=== PATIENT | male | born 1950 | race Caucasian/White ===

== ENCOUNTER 2017-06-06 07:58 | Inpatient (IN) | payer MEDICARE, OTHER ==
[~2017-06-06] VITALS: Ht 170.2 cm; Wt 83.7 kg
[2017-06-06] MEDS ORDERED: MORPHINE SULFATE 4 MG/ML DISP.SYRIN. IV/SQ PRN (08:30)
[2017-06-06] MEDS ORDERED: NITROGLYCERIN SUBLINGUAL 0.4 MG BOTTLE OF 25. SL PRN ×2 (08:30→10:45)
--- NOTE | 2017-06-06 08:33 | EKG ---
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
[2017-06-06 08:40] LABS: BASO % 1 % (0-3); EOS # 0.1 x10^3/uL (0.0-0.7); EOS % 1 % (0-3); HEMATOCRIT 42.9 % (39.0-53.0); LYMPH % 26 % (24-48); MEAN CORPUSCULAR HEMOGLOBIN 33 pg (25-35); MEAN CORPUSCULAR HGB CONC 35 g/dL (31-37); MEAN CORPUSCULAR VOLUME 94 fL (79-100); MONO # 0.5 x10^3/uL (0.0-1.1); MONO % 6 % (0-9); NEUT # 5.2 x10^3uL (1.8-7.7); NEUT % 67 % (31-73); PLATELET COUNT 136 x10^3/uL (140-400); RED BLOOD COUNT 4.57 x10^6/uL (4.30-5.70); RED CELL DISTRIBUTION WIDTH 13.2 % (11.5-14.5); WHITE BLOOD COUNT 7.8 x10^3/uL (4.0-11.0)
--- NOTE | 2017-06-06 08:51 | RAD ---
Portable chest, 06/06/2017: History: Chest pain The heart size and pulmonary vascularity are normal. No pulmonary infiltrates are seen. There is no evidence of pleural fluid. There is mild spurring in the spine. IMPRESSION: No acute cardiopulmonary abnormality is detected.
--- NOTE | 2017-06-06 08:58 | PHYS DOC ---
Adult General Chief Complaint Chief Complaint: CHEST WALL PAIN HPI HPI Patient is a 66 year old male who presents with chest pain. The patient reports onset of pain last evening while at rest, woke him up at night & intensified this morning. Pain is pressure like, substernal, radiates to back between shoulder blades. Reports shortness of breath & nausea, denies diaphoresis. He denies fevers/chills, cough, lower extremity pain/swelling. He denies previous history of similar symptoms. 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 History of CAD in his grandfather. Review of Systems Review of Systems Constitutional: Denies fever or chills Eyes: Denies change in visual acuity HENT: Denies nasal congestion or sore throat Respiratory: Denies cough, reports shortness of breath Cardiovascular: Reports chest pain, denies edema GI: Reports nausea. Denies abdominal pain, vomiting, bloody stools or diarrhea Musculoskeletal: Denies back pain or joint pain Integument: Denies rash or skin lesions Neurologic: Denies headache, focal weakness or sensory changes Current Medications Current Medications Current Medications Medications (Trade) Dose Ordered Sig/John Start Time Stop Time Status Last Admin Dose Admin Aspirin (Children'S Aspirin) 324 mg 1X ONCE 06/06/17 08:30 06/06/17 08:31 UNV Morphine Sulfate (Morphine 4mg Syringe) 4 mg PRN Q15MIN PRN 06/06/17 08:30 06/07/17 08:29 UNV Nitroglycerin (Nitrostat) 0.4 mg PRN Q5MIN PRN 06/06/17 08:30 UNV Physical Exam Physical Exam Constitutional: Well developed, well nourished, no acute distress, non-toxic appearance. HENT: Normocephalic, atraumatic, bilateral external ears normal, oropharynx moist, nose normal. Eyes: conjunctiva normal, no discharge. Neck: supple, no stridor. Cardiovascular: RRR, no murmurs, no edema. Lungs & Thorax: LCTAB, no wheezing, no respiratory distress. no reproducible tenderness with palpation over anterior chest wall. Abdomen: soft, nontender, nondistended. Skin: Warm, dry, no erythema, no rash. Back: No tenderness. Extremities: No tenderness, no edema. no calf tenderness or swelling. Neurologic: Alert and oriented X 3, no focal deficits noted. Psychologic: Affect normal, judgement normal, mood normal. Current Patient Data Lab Results Laboratory Tests Test 06/06/17 08:20 White Blood Count 7.8 x10^3/uL (4.0-11.0) Red Blood Count 4.57 x10^6/uL (4.30-5.70) Hemoglobin 15.0 g/dL (13.0-17.5) Hematocrit 42.9 % (39.0-53.0) Mean Corpuscular Volume 94 fL (79-100) Mean Corpuscular Hemoglobin 33 pg (25-35) Mean Corpuscular Hemoglobin Concent 35 g/dL (31-37) Red Cell Distribution Width 13.2 % (11.5-14.5) Platelet Count 136 x10^3/uL (140-400) L Neutrophils (%) (Auto) 67 % (31-73) Lymphocytes (%) (Auto) 26 % (24-48) Monocytes (%) (Auto) 6 % (0-9) Eosinophils (%) (Auto) 1 % (0-3) Basophils (%) (Auto) 1 % (0-3) Neutrophils # (Auto) 5.2 x10^3uL (1.8-7.7) Lymphocytes # (Auto) 2.0 x10^3/uL (1.0-4.8) Monocytes # (Auto) 0.5 x10^3/uL (0.0-1.1) Eosinophils # (Auto) 0.1 x10^3/uL (0.0-0.7) Basophils # (Auto) 0.0 x10^3/uL (0.0-0.2) Prothrombin Time 9.9 SEC (9.4-11.4) Prothrombin Time INR 1.0 (0.9-1.1) EKG EKG interpreted by me: NSR rate 68, no acute ST/T wave changes, normal intervals, no ectopy.[] Radiology/Procedures Radiology/Procedures PROCEDURE: CT ANGIOGRAPHY CHEST CTA of the chest with contrast, 06/06/2017: History: Shortness of breath, chest pain Multidetector CT imaging was performed following an IV bolus injection of iodinated contrast material. Multiplanar reconstructions were produced including coronal MIP images. The central pulmonary arteries are well opacified and no filling defects are seen to suggest pulmonary emboli. Several coronary artery calcifications are noted. The heart is at the upper limits of normal in size. The thoracic aorta is of normal caliber. There are calcified subcarinal lymph nodes compatible with old granulomatous disease. No pathologically enlarged mediastinal or hilar lymph nodes are evident. There is minimal dependent atelectasis in the lungs. No pulmonary consolidation is evident. No significant volume of pleural fluid is present. IMPRESSION: 1. No CT evidence of central pulmonary emboli. 2. Mild coronary artery calcifications. PQRS Compliance Statement: One or more of the following individualized dose reduction techniques were utilized for this examination: 1. Automated exposure control 2. Adjustment of the mA and/or kV according to patient size 3. Use of iterative reconstruction technique DICTATED AND SIGNED BY: SILVIA MCKEON MD DATE: 06/06/17 0943 PROCEDURE: CHEST AP ONLY Portable chest, 06/06/2017: History: Chest pain The heart size and pulmonary vascularity are normal. No pulmonary infiltrates are seen. There is no evidence of pleural fluid. There is mild spurring in the spine. IMPRESSION: No acute cardiopulmonary abnormality is detected. DICTATED AND SIGNED BY: SILVIA MCKEON MD DATE: 06/06/17 0849[] Course & Med Decision Making Course & Med Decision Making Pertinent Labs and Imaging studies reviewed. (See chart for details) The patient presents with chest pain. Gave aspirin on arrival, ordered nitro & morphine for pain. Obtained labs, EKG, CXR. RN to obtain bilateral blood pressure & ordered CTA chest to evaluate for dissection. Appears to have been performed per PE protocol but there is no evidence of PE & on this study no obvious aortic abnormality. Patient stable with normal blood pressure. I did recommend admission to the hospital for further cardiac evaluation, & the patient agrees with plan of care. HEART score is 3. Discussed with Dr. Segovia who agrees to admit to inpatient status. Cardiology consult to Dr. Carrasco. The patient is admitted in stable condition. [] Dragon Disclaimer Dragon Disclaimer This chart was dictated in whole or in part using Voice Recognition software in a busy, high-work load, and often noisy Emergency Department environment. It may contain unintended and wholly unrecognized errors or omissions. Departure Departure: Impression: Primary Impression: Chest pain Disposition: ADMITTED INPATIENT Admitting Physician: Amaya Segovia Condition: STABLE Referrals: IQRA STEWART DO (PCP) PATRICIA WHITMAN MD Jun 06, 2017 08:58
[2017-06-06 09:00] LABS: ALBUMIN 4.1 g/dL (3.4-5.0); ALBUMIN/GLOBULIN RATIO 1.3 (1.0-1.7); CALCIUM 9.2 mg/dL (8.5-10.1); CREATININE 1.1 mg/dL (0.7-1.3); GFR 67.2; MAGNESIUM 2.1 mg/dL (1.8-2.4); POTASSIUM 3.8 mmol/L (3.5-5.1); TOTAL BILIRUBIN 1.1 mg/dL (0.2-1.0); TOTAL PROTEIN 7.3 g/dL (6.4-8.2)
[2017-06-06] MEDS ORDERED: ASPIRIN 81 MG TAB.CHEW PO ONE (09:30)
[2017-06-06] MEDS ORDERED: IOHEXOL 300 MG/ML 75 ML VIAL. IV ONE (09:30)
--- NOTE | 2017-06-06 09:55 | RAD ---
CTA of the chest with contrast, 06/06/2017: History: Shortness of breath, chest pain Multidetector CT imaging was performed following an IV bolus injection of iodinated contrast material. Multiplanar reconstructions were produced including coronal MIP images. The central pulmonary arteries are well opacified and no filling defects are seen to suggest pulmonary emboli. Several coronary artery calcifications are noted. The heart is at the upper limits of normal in size. The thoracic aorta is of normal caliber. There are calcified subcarinal lymph nodes compatible with old granulomatous disease. No pathologically enlarged mediastinal or hilar lymph nodes are evident. There is minimal dependent atelectasis in the lungs. No pulmonary consolidation is evident. No significant volume of pleural fluid is present. IMPRESSION: 1. No CT evidence of central pulmonary emboli. 2. Mild coronary artery calcifications. PQRS Compliance Statement: One or more of the following individualized dose reduction techniques were utilized for this examination: 1. Automated exposure control 2. Adjustment of the mA and/or kV according to patient size 3. Use of iterative reconstruction technique
[2017-06-06] MEDS ORDERED: ACETAMINOPHEN 325 MG TABLET PO PRN (10:45)
[2017-06-06] MEDS ORDERED: ONDANSETRON PF 4 MG/2 ML VIAL. IV PRN ×2 (10:45→15:15)
[2017-06-06] MEDS ORDERED: MORPHINE SULFATE 2 MG/ML DISP.SYRIN. IV PRN (10:45)
[2017-06-06 11:34] VITALS: BP 125/73
[2017-06-06] MEDS ORDERED: ASPI81TA50 PO (12:23)
[2017-06-06] MEDS ORDERED: ATEN25TA PO (12:23)
[2017-06-06] MEDS ORDERED: MULT-659 PO (12:23)
[2017-06-06] MEDS ORDERED: SIMV40TA PO (12:23)
[2017-06-06 16:19] VITALS: BP 104/60
--- NOTE | 2017-06-06 19:03 | EKG ---
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
[2017-06-06 20:00] VITALS: BP 128/77
--- NOTE | 2017-06-06 20:14 | HP ---
ADMIT DATE: 06/06/2017 REASON FOR ADMISSION: Chest pain. HISTORY OF PRESENT ILLNESS: This is a 66-year-old male who woke up several times with pain in his chest through the center of his back. He felt pressure, felt like he had to take a deep breath and belch. He got up, got a drink, took some deep breaths and went back to bed, sitting up. He states he napped, he woke up, the pain was still there. It woke him up four times during the night. He denies any kind of strenuous activity. PAST MEDICAL HISTORY: Significant for arrhythmia with a fast irregular heartbeat which is controlled by atenolol. He has recently had a widespread case of shingles and just finished the antiviral 2 days ago. Has a history of Gindt-Xmagntumh-Nomrw. He had a left central vein occlusion and has carotid artery disease. FAMILY HISTORY: Positive for rapid heartbeat, mother had heart problems. Grandfather of heart problems at 67. Father is 90 with no problems. PAST SURGICAL HISTORY: Never. HABITS: Tobacco: None. Alcohol moderate. IMMUNIZATION: He actually has an appointment for flu shot tomorrow. Also, had the shingles vaccine 2 years ago. EXERCISE: The patient does aerobic exercise almost on a daily basis on treadmill and does some weights. MEDICATIONS: Reviewed and are available on the MAR. REVIEW OF SYSTEMS: As per HPI. PHYSICAL EXAMINATION: VITAL SIGNS: Blood pressure 125/73, pulse 52 previously was 71, respirations 20, pulse ox 93% on room air, temperature 97.9. Height 67 inches, weight 184.44 pounds. GENERAL: A 66-year-old in no acute distress. His eyes were clear. Hearing is normal. Nose is patent. Throat was clear. NECK: Supple, without adenopathy. There are no carotid bruits. LUNGS: Clear to auscultation. CARDIOVASCULAR: Regular rhythm and rate. Possible 1/6 systolic murmur. ABDOMEN: ____ EXTREMITIES: Without edema. SKIN: Scabbed over, evidence of herpes zoster. LABORATORY DATA: CBC is normal with a slightly low platelet count. Chemistry: Troponin is negative x 1. Lipids are negative. Triglycerides are 180. IMAGING: EKG cannot review at the present time. RADIOLOGICAL DATA: He had a CAT scan and he has mild coronary artery calcifications. ASSESSMENT: 1. Chest pain, questionable etiology. 2. History of Lhdsz-Duvxxkgwt-Jmuif. 3. History of irregular heartbeat. 4. Recent extensive episode of shingles. 5. History of left central vein occlusion. 6. Mild carotid artery disease. 7. Coronary artery calcifications per CT. PLAN: Cardiology consult, possible stress test tomorrow, observe overnight for further chest pain. HIEU GIANG DO DR: NORY/dee JOB#: [id number] / [id number]
[2017-06-07 00:33] VITALS: BP 111/64
[2017-06-07 06:04] VITALS: BP 130/72
[2017-06-07 06:20] LABS: CREATININE 1.1 mg/dL (0.7-1.3); GFR 67.2; POTASSIUM 4.1 mmol/L (3.5-5.1)
[2017-06-07 06:23] LABS: BASO % 1 % (0-3); EOS # 0.3 x10^3/uL (0.0-0.7); EOS % 5 % (0-3); HEMATOCRIT 42.7 % (39.0-53.0); HEMOGLOBIN 14.9 g/dL (13.0-17.5); LYMPH # 2.2 x10^3/uL (1.0-4.8); LYMPH % 31 % (24-48); MEAN CORPUSCULAR HEMOGLOBIN 33 pg (25-35); MEAN CORPUSCULAR HGB CONC 35 g/dL (31-37); MEAN CORPUSCULAR VOLUME 95 fL (79-100); MONO # 0.5 x10^3/uL (0.0-1.1); MONO % 7 % (0-9); NEUT % 56 % (31-73); PLATELET COUNT 133 x10^3/uL (140-400); RED BLOOD COUNT 4.51 x10^6/uL (4.30-5.70); RED CELL DISTRIBUTION WIDTH 13.6 % (11.5-14.5); WHITE BLOOD COUNT 7.1 x10^3/uL (4.0-11.0)
--- NOTE | 2017-06-07 07:29 | CARD ---
APPROVED REPORT EXAM: Two-dimensional and M-mode echocardiogram with Doppler and color Doppler. Other Information Quality : GoodHR: 55bpm Rhythm : Bradycardia INDICATION Chest Pain 2D DIMENSIONS RVDd3.3 (2.9-3.5cm)Left Atrium(2D)3.7 (1.6-4.0cm) IVSd1.0 (0.7-1.1cm)Aortic Root(2D)3.0 (2.0-3.7cm) LVDd3.5 (3.9-5.9cm)LVOT Diameter2.3 (1.8-2.4cm) PWd1.0 (0.7-1.1cm)LVDs2.2 (2.5-4.0cm) FS (%) 36.9 %SV34.0 ml LVEF(%)67.9 (>50%) Aortic Valve AoV Peak Anthony.122.4cm/sAoV VTI28.7cm AO Peak GR.6.0mmHgLVOT Peak Anthony.107.0cm/s LVOT VTI 24.97cmAO Mean GR.4mmHg WILBER (VMAX)3.79xm8KDH (VTI)3.48cm2 Mitral Valve MV E Cltyshtl86.5cm/sMV DECEL PECD102mu MV A Zlunmqux30.6cm/sE/A Ratio2.0 MV A Rfbjdloa52wk Pulmonary Valve PV Peak Anhbhkic514.0cm/sPV Peak Grad.4mmHg Tricuspid Valve TR P. Tqoqxwup972ek/sTR Peak Gr.29mmHg Pulmonary Vein S1 Jqmjrmlf31.3cm/sD2 Dncoovqp55.6cm/s LEFT VENTRICLE The left ventricle cavity is small. There is normal left ventricular wall thickness. The left ventric ular systolic function is normal. The Ejection Fraction is 65-70%. There is normal LV segmental wall motion. The left ventricular diastolic function and filling is normal for age. RIGHT VENTRICLE The right ventricle is normal size. There is normal right ventricular wall thickness. The right ventr icular systolic function is normal. ATRIA The left atrium size is normal. The right atrium size is normal. The interatrial septum is intact wit h no evidence for an atrial septal defect or patent foramen ovale as noted on 2-D or Doppler imaging. AORTIC VALVE The aortic valve is mildly sclerotic. The aortic valve is trileaflet. Doppler and Color Flow revealed no significant aortic regurgitation. There is no significant aortic valvular stenosis. MITRAL VALVE The mitral valve leaflets are mildly thickened. There is no evidence of mitral valve prolapse. There is no mitral valve stenosis. Doppler and Color Flow revealed mild mitral regurgitation. TRICUSPID VALVE Doppler and Color Flow revealed mild tricuspid regurgitation. The pulmonary artery systolic pressure is estimated at 33 mmHg. There is mild pulmonary hypertension. PULMONIC VALVE The pulmonic valve is not well visualized but appears to open adequately.Doppler and Color Flow revea led no pulmonic valvular regurgitation. There is no pulmonic valvular stenosis by spectral Doppler. J orge [place],RDCS,RVT,RDMS,RT(R) GREAT VESSELS The aortic root is normal in size. The ascending aorta is normal in size. The pulmonary artery is nor mal. The IVC is normal in size and collapses >50% with inspiration. PERICARDIAL EFFUSION There is no evidence of significant pericardial effusion. Critical Notification Critical Value: No <Conclusion> The left ventricular systolic function is normal. The Ejection Fraction is 65-70%. There is normal LV segmental wall motion. Mild mitral regurgitation. Mild tricuspid regurgitation. The pulmonary artery systolic pressure is estimated at 33 mmHg. There is no evidence of significant pericardial effusion.
[2017-06-07] MEDS ORDERED: ATENOLOL 25 MG TABLET PO SCH (09:00)
[2017-06-07] MEDS ORDERED: ASPIRIN ENTERIC COATED 81 MG TABLET.DR. PO SCH (09:00)
[2017-06-07] MEDS ORDERED: MULTIVITAMIN with MINERAL TABLET. PO SCH (09:00)
--- NOTE | 2017-06-07 09:47 | PDOC2 ---
CONSULT Date of Admission DATE: 06/07/17 TIME: 09:46 Reason for Consult: chest pain Problem List Problems Medical Problems: (1) Chest pain Status: Acute History of Present Illness Mr Jain is a 66 year old male with history of WPW and hyperlipidemia. He presents with complaints of chest pressure that woke him from sleep. He describes a substernal pressure sensation radiating between his shoulder blades. He reports associated dyspnea and nausea. He got up and walked around then drank water. He says discomfort improved enough for him to go back to sleep but did not resolve. He was awakened 4 times between 23:30 and 05:00 with the same symptoms so presented to the ED. He was given NTG and morphine which resolved his symptoms. He denies previous symptoms, denies dyspnea, lightheadedness or syncope. He denies congestive symptoms. He reports occasional "skipped beats". He does have history of WPW but denies any tachycardia incidents for many years since being on Atenolol. He walks 2 miles daily without problems. Past Medical History WPW, Hyperlipidemia, shingles, carotid artery disease. He denies other medical problems. Past Surgical History none Family History premature coronary disease in his grandfather irregular heart rhythm in sister and mother Social History non smoker. 1 alcoholic beverage per day about 5 days per week, no illicit drugs Current Medications Current Medications Aspirin (Children'S Aspirin) 324 mg 1X ONCE PO Last administered on 06/06/17 09:52; Start 06/06/17 at 09:30; Stop 06/06/17 at 09:31; Status DC Morphine Sulfate (Morphine 4mg Syringe) 4 mg PRN Q15MIN PRN IV/SQ PAIN GREATER THAN 3/10 Last administered on 06/06/17 09:53; Start 06/06/17 at 08:30; Stop at 08:29; Status DC Nitroglycerin (Nitrostat) 0.4 mg PRN Q5MIN PRN SL CHEST PAIN Last administered on 06/06/17 09:53; Start 06/06/17 at 08:30 Iohexol (Omnipaque 300 Mg/ml) 75 ml 1X ONCE IV ; Start 06/06/17 at 09:30; Stop 06/06/17 at 09:31; Status DC Ondansetron HCl (Zofran) 4 mg PRN Q4HRS PRN IV NAUSEA/VOMITING; Start 06/06/17 at 10:45; Stop 06/06/17 at 15:15; Status DC Morphine Sulfate (Morphine 2mg Syringe) 2 mg PRN Q2HR PRN IV PAIN; Start at 10:45; Stop 06/07/17 at 10:44 Acetaminophen (Tylenol) 650 mg PRN Q4HRS PRN PO FEVER; Start 06/06/17 at 10:45 ; Stop 06/07/17 at 10:44 Nitroglycerin (Nitrostat) 0.4 mg PRN Q5MIN PRN SL CHEST PAIN; Start 06/06/17 at 10:45; Stop 06/06/17 at 15:14; Status DC Aspirin (Aspirin Enteric Coated) 81 mg DAILY PO ; Start 06/07/17 at 09:00 Atenolol (Tenormin) 12.5 mg DAILY PO ; Start 06/07/17 at 09:00 Simvastatin (Zocor) 40 mg QHS PO ; Start 06/07/17 at 21:00 Multivitamins/ Calcium (Thera-M Plus) 1 tab DAILY PO ; Start 06/07/17 at 09:00 Ondansetron HCl (Zofran) 4 mg PRN Q4HRS PRN IV NAUSEA/VOMITING; Start 06/06/17 at 15:15; Stop 06/07/17 at 11:00 Active Scripts Active Reported Centrum Men's Tablet (Multivits,Ca,Min/Iron/FA/Lycop) 1 Each Tablet 1 Each PO DAILY Aspir-Low (Aspirin) 81 Mg Tablet. 1 Tab PO DAILY Zocor (Simvastatin) 40 Mg Tablet 1 Tab PO DAILY Atenolol 25 Mg Tablet 0.5 Tab PO DAILY Allergies: Coded Allergies: No Known Drug Allergies (Unverified , 06/06/17) Review of System as per HPI or negative General: Alert, Oriented X3, Cooperative, No acute distress HEENT: Atraumatic, EOMI, Mucous membr. moist/pink Lungs: Clear to auscultation, Normal air movement Heart: Regular rate, Normal S1, Normal S2, No murmurs, Other (no gallops, clicks or rubs) Abdomen: Normal bowel sounds, Soft, No tenderness Extremities: No clubbing, No cyanosis, No edema, Normal pulses Neuro: Normal speech, Strength at 5/5 X4 ext Psych/Mental Status: Mental status NL, Mood NL VITALS Vital Signs Date Time Temp Pulse Resp B/P (MAP) Pulse Ox O2 Delivery O2 Flow Rate FiO2 06/07/17 06:04 98.3 53 20 130/72 (91) 94 Room Air Labs Laboratory Tests Test 06/06/17 08:20 06/06/17 15:50 06/06/17 21:35 06/07/17 05:59 White Blood Count 7.8 x10^3/uL (4.0-11.0) 7.1 x10^3/uL (4.0-11.0) Red Blood Count 4.57 x10^6/uL (4.30-5.70) 4.51 x10^6/uL (4.30-5.70) Hemoglobin 15.0 g/dL (13.0-17.5) 14.9 g/dL (13.0-17.5) Hematocrit 42.9 % (39.0-53.0) 42.7 % (39.0-53.0) Mean Corpuscular Volume 94 fL (79-100) 95 fL (79-100) Mean Corpuscular Hemoglobin 33 pg (25-35) 33 pg (25-35) Mean Corpuscular Hemoglobin Concent 35 g/dL (31-37) 35 g/dL (31-37) Red Cell Distribution Width 13.2 % (11.5-14.5) 13.6 % (11.5-14.5) Platelet Count 136 x10^3/uL (140-400) 133 x10^3/uL (140-400) Neutrophils (%) (Auto) 67 % (31-73) 56 % (31-73) Lymphocytes (%) (Auto) 26 % (24-48) 31 % (24-48) Monocytes (%) (Auto) 6 % (0-9) 7 % (0-9) Eosinophils (%) (Auto) 1 % (0-3) 5 % (0-3) Basophils (%) (Auto) 1 % (0-3) 1 % (0-3) Neutrophils # (Auto) 5.2 x10^3uL (1.8-7.7) 4.0 x10^3uL (1.8-7.7) Lymphocytes # (Auto) 2.0 x10^3/uL (1.0-4.8) 2.2 x10^3/uL (1.0-4.8) Monocytes # (Auto) 0.5 x10^3/uL (0.0-1.1) 0.5 x10^3/uL (0.0-1.1) Eosinophils # (Auto) 0.1 x10^3/uL (0.0-0.7) 0.3 x10^3/uL (0.0-0.7) Basophils # (Auto) 0.0 x10^3/uL (0.0-0.2) 0.0 x10^3/uL (0.0-0.2) Prothrombin Time 9.9 SEC (9.4-11.4) Prothromb Time International Ratio 1.0 (0.9-1.1) Sodium Level 140 mmol/L (136-145) 140 mmol/L (136-145) Potassium Level 3.8 mmol/L (3.5-5.1) 4.1 mmol/L (3.5-5.1) Chloride Level 103 mmol/L (98-107) 105 mmol/L (98-107) Carbon Dioxide Level 29 mmol/L (21-32) 28 mmol/L (21-32) Anion Gap 8 (6-14) 7 (6-14) Blood Urea Nitrogen 12 mg/dL (8-26) 14 mg/dL (8-26) Creatinine 1.1 mg/dL (0.7-1.3) 1.1 mg/dL (0.7-1.3) Estimated GFR (Cockcroft-Gault) 67.2 67.2 BUN/Creatinine Ratio 11 (6-20) Glucose Level 109 mg/dL (70-99) 102 mg/dL (70-99) Calcium Level 9.2 mg/dL (8.5-10.1) 9.0 mg/dL (8.5-10.1) Magnesium Level 2.1 mg/dL (1.8-2.4) Total Bilirubin 1.1 mg/dL (0.2-1.0) Aspartate Amino Transf (AST/SGOT) 25 U/L (15-37) Alanine Aminotransferase (ALT/SGPT) 39 U/L (16-63) Alkaline Phosphatase 79 U/L (46-116) Troponin I Quantitative < 0.017 ng/mL (0-0.055) < 0.017 ng/mL (0-0.055) < 0.017 ng/mL (0-0.055) YJ-Moq-E-Type Natriuretic Peptide 64 pg/mL (0-124) Total Protein 7.3 g/dL (6.4-8.2) Albumin 4.1 g/dL (3.4-5.0) Albumin/Globulin Ratio 1.3 (1.0-1.7) Triglycerides Level 180 mg/dL (0-150) Cholesterol Level 174 mg/dL (0-200) LDL Cholesterol, Calculated 91 mg/dL (0-100) VLDL Cholesterol, Calculated 36 mg/dL (0-40) Non-HDL Cholesterol Calculated 127 mg/dL (0-129) HDL Cholesterol 47 mg/dL (40-60) Cholesterol/HDL Ratio 3.0 Images EKG sinus rhythm with non specific abnormalities, no acute ischemic changes CTA - IMPRESSION: 1. No CT evidence of central pulmonary emboli. 2. Mild coronary artery calcifications. CXR - IMPRESSION: No acute cardiopulmonary abnormality is detected. Assessment/Plan 1. chest pain relieved with nitrates and coronary calcification on CT - Echo with normal LVEF and wall motion. Plan for MPI outpatient in am. 2. Hyperlipidemia - controlled, continue statin 3. WPW - continue beta blockers Problems: TEE BALDERAS APRN Jun 07, 2017 09:47
[2017-06-07 10:04] VITALS: BP 130/72
[2017-06-07] MEDS ORDERED: SIMVASTATIN 40 MG TABLET. PO SCH (21:00)
--- NOTE | 2017-06-07 21:05 | DS ---
DATE OF DISCHARGE: 06/07/2017 DISCHARGE DIAGNOSES: 1. Chest pain, myocardial infarction ruled out. 2. History of Rmgvc-Jhldlioeo-Tuhxm. 3. Mild thrombocytopenia, this is not a new diagnosis. 4. Recent herpes zoster infection. 5. Hyperlipidemia. HOSPITAL COURSE: Please see history and physical. This is a 66-year-old gentleman who was awakened from sleep with chest pressure, substernal and radiating between his shoulder blades. It was not relieved, so came to the hospital, subsequent workup was negative for MT and an outpatient stress test will be done. The patient is aware of his low platelets and is being monitored as an outpatient. He was seen in consultation by Cardiology and did not have any pain throughout his stay. DISCHARGE VITAL SIGNS: Blood pressure 130/72, pulse 53. DISPOSITION: To home and will follow up with his Cardiology for stress test. HIEU GIANG DO DR: NORY/dee JOB#: [id number] / [id number]
== END 2017-06-07 10:30 | disposition home or self-care (01) | DRG 206 ==
LOC: ER 07:58 → 1 SOUTH 10:20
PROVIDERS: ADMIT Family Medicine; ATTEND Family Medicine
DX: M94.0 Chondrocostal junction syndrome [Tietze] (principal); D69.6 Thrombocytopenia, unspecified; I25.10 Atherosclerotic heart disease of native coronary artery without angina pectoris; E78.5 Hyperlipidemia, unspecified; I77.9 Disorder of arteries and arterioles, unspecified; I45.6 Pre-excitation syndrome; Z82.49 Family history of ischemic heart disease and other diseases of the circulatory system
CPT/HCPCS: 36415; 71010; 71275; 80048; 80053; 80061; 83735; 83880; 84484; 85025; 85610; 93005; 93306; 96372; J2270; 99285-25

== ENCOUNTER → 2017-06-08 | Outpatient (CLI) | payer MEDICARE, OTHER ==
[2017-06-07 06:04] VITALS: BP 130/72
[~2017-06-08] MED LIST: ASPI81TA50 PO; ATEN25TA PO; MULT-659 PO; SIMV40TA PO
--- NOTE | 2017-06-08 12:43 | RAD ---
APPROVED REPORT Test Type: Exercise Stress Nurse/Tech: MENDEZ Argueta Test Indications: Chest pain possible arrythmias Cardiac History: Chest pain Medications: see EHR Medical History: see EHR Resting ECG: SR Resting Heart Rate: 63 bpm Resting Blood Pressure: 130/70mmHg Pretest Chest Pain: None Nurse/Tech Notes Consent: The procedure was explained to the patient in lay terms. Informed consent was witnessed. Tyrese crawford was entered into [facility]. History and Stress Test performed by MENDEZ Argueta POST EXERCISE Reason for Termination: Reached target heart rate - FATIGUE Target HR: Yes Max HR: 165 bpm 106% of Maximum Predicted HR: 155 bpm Exercise duration: 9 min:sec, Stage Max Blood Pressure: 167/66mmHg Blood Pressure response to exercise: Normal blood pressure response during stress. Heart Rate response to exercise: NORMAL RESPONSE Chest Pain: No. INTERPRETATION Stress EKG Conclusion: Baseline EKG showed sinus rhythm. No ischemic changes at peak stress. No arr hythmias. Imaging Protocol IMAGE PROTOCOL: Rest Tc-99m/stress Tc-99m 1 day Rest: Stress: Viability: Radiopharm.Tc99m DvepjwwtuMs20c Sestamibi Dose12.1mCi 33.3mCi Duration 17min. 12min. Img Date 06/08/2017 06/08/2017 Inj-Img [id number]. 60min. Post-Injection Exercise: 2.5MINUTES Rest Admin Site:IV - Right AntecubitalAdministrator: MENDEZ Argueta Stress Admin Site: IV - Right AntecubitalAdministrator: MENDEZ Argueta STRESS DATA End Diast. Vol.82.0mlAv. Heart Rate93.0bpm LVEDV index BSA1.0mlCardiac Output0.1L/min End Syst. Vol.17.0mlCO Index BSA6.1L/min LVESV index BSA0.0mlMyocardial Cygq652.0g Eject. Vxmrvxbo48.0% Stress Rates Pk. Fill Rate3.33EDV/secLVtime Pk. Fill 152.47msec Pk. Empty Rate4.29ESV/secLVtime Pk. Dboif437.23msec 09/20 Pk. Fill0.92EDV/sec Stress Scores Regional WT0.00Summed WT0.00 Regional WM0.00Summed WM0.00 Study quality was good. Left Ventricular size was Normal at Rest and Stress. Lung uptake was Normal. Left Ventricular ejection fraction is 79%. The rest and stress images show normal perfusion, normal contraction and thickening. LV Perf. Quant 17 Seg. SSS0.00 17 Seg. SRS2.00 17 Seg. SDS0.00 Stress Defect Extent (% LAD)0.00Rest Defect Extent (% LAD)0.00Rev. Defect Extent (% LAD)0.00 Stress Defect Extent (% LCX) 0.00Rest Defect Extent (% LCX)10.00Rev. Defect Extent (% LCX)0.00 Stress Defect Extent (% RCA)0.00Rest Defect Extent (% RCA)0.00Rev. Defect Extent (% RCA)0.00 Stress Defect Extent (% SHAAN)0.00Rest Defect Extent (% SHAAN)1.70Rev. Defect Extent (% SHAAN)0.00 Conclusion 1. Treadmill exercise cardioisotope stress test did not show any evidence of ischemia or infarct. 2. Normal left ventricular systolic function with ejection fraction calculated at 79%. 3. Low risk for cardiac events.
== END | disposition home or self-care (01) ==
LOC: NM 07:57
PROVIDERS: ATTEND Nurse Practitioner
DX: I25.10 Atherosclerotic heart disease of native coronary artery without angina pectoris (principal); R07.9 Chest pain, unspecified; Z79.01 Long term (current) use of anticoagulants
CPT/HCPCS: 78452; 93017; 96374; 96376; A9500

== ENCOUNTER → 2019-06-04 | Outpatient (CLI) | payer MEDICARE, OTHER ==
[~2019-06-04] MED LIST changes: -ATEN25TA PO; +ATEN25TA42 PO
--- NOTE | 2019-06-04 18:13 | RAD ---
Two-view abdomen radiographs 06/04/2019 CLINICAL HISTORY: Right-sided abdominal pain for 2 weeks. Supine and erect AP digital radiographs of the abdomen/pelvis were obtained. The abdominal bowel gas pattern is nonobstructive. Moderate amount stool seen throughout the colon. No radiopaque calculus is seen. There is no evidence of free air. Degenerative changes are seen involving the lumbar spine and both hips. Atherosclerotic calcification of the abdominal aorta and its branches is noted. IMPRESSION: Nonobstructive bowel gas pattern. A moderate amount of stool is seen throughout the colon. Electronically signed by: Kenroy Blackmon MD (06/04/2019 6:09 PM) [place] [id number]
== END | disposition home or self-care (01) ==
LOC: PMG 09:15
PROVIDERS: ATTEND Physician Assistant
DX: I70.0 Atherosclerosis of aorta (principal); M47.816 Spondylosis without myelopathy or radiculopathy, lumbar region; M16.0 Bilateral primary osteoarthritis of hip
CPT/HCPCS: 74019

== ENCOUNTER → 2021-05-10 | Outpatient (CLI) | payer MEDICARE, OTHER ==
--- NOTE | 2021-05-10 14:00 | RAD ---
CT ABDOMEN W/O CONTRAST History: Reason: ABDOMINAL PAIN, HEMATURIA / Spl. Instructions: / History: Technique: Noncontrast examination of the abdomen. Coronal and sagittal reconstructions were performe d. Exposure: One or more of the following individualized dose reduction techniques were utilized for thi s examination: 1. Automated exposure control 2. Adjustment of the mA and/or kV according to patient size 3. Use of iterative reconstruction technique. Comparison: None Findings: Lower chest: No consolidation or pleural effusion. Abdomen: The liver, adrenal glands, pancreas and gallbladder are unremarkable. No hydronephrosis. Spl enic calcified granulomas. Linear calcination along the inferior posterior aspect of the spleen may r elate to prior insult. Moderate right hydronephrosis. Severe right perinephric and periureteral edema. Mildly dilated right ureter. The distal ureter is not imaged. Punctate nonobstructing left inferior intrarenal calculus. N o left hydronephrosis. Normal appendix. The imaged bowel is nonobstructed. No pathologic lymphadenopathy. Atheromatous plaqu e throughout the nonaneurysmal abdominal aorta and branch vessels. Small fat-containing umbilical her larry. Bones: Moderate multilevel lumbar spondylosis most prominent L4-5 and L5-S1. Posterior calcified disc protrusions within the thoracic spine contributing to canal narrowing most prominent T7-T8 with mode rate canal narrowing. Severe canal narrowing L3-L4. Moderate canal narrowing L4-5. Impression: 1. Moderate right hydronephrosis and hydroureter with severe perinephric/periureteral edema. Finding s concerning for distal ureteral obstructing calculus although not included in the abdominal CT. Alexander mmend CT pelvis to further evaluate. 2. Punctate nonobstructing left intrarenal calculus. 3. Multilevel thoracolumbar spondylosis with canal narrowing most severe L3-L4. Electronically signed by: Apolinar Gary DO (05/10/2021 1:57 PM) [facility]
== END ==
LOC: CT 13:01
PROVIDERS: ATTEND Nurse Practitioner Family
DX: N20.0 Calculus of kidney (principal); N13.30 Unspecified hydronephrosis; N13.4 Hydroureter; M47.815 Spondylosis without myelopathy or radiculopathy, thoracolumbar region; M48.061 Spinal stenosis, lumbar region without neurogenic claudication; D73.89 Other diseases of spleen; I70.0 Atherosclerosis of aorta; K42.9 Umbilical hernia without obstruction or gangrene; M47.817 Spondylosis without myelopathy or radiculopathy, lumbosacral region; M51.24 Other intervertebral disc displacement, thoracic region
CPT/HCPCS: 74150